=== PATIENT | female | born 1985 | race African-American/Black ===

== ENCOUNTER 2019-07-18 09:20 | Emergency (ER) | payer OTHER ==
[2019-07-18 09:31] VITALS: BP 124/74; PULSE 60; TEMP 97.6; BMI 21.2
[2019-07-18] MEDS ORDERED: LIDOCAINE 5% TOPICAL PATCH TP ONE (10:22)
[2019-07-18] MEDS ORDERED: ACETAMINOPHEN 325 MG TABLET (FP) PO ONE (10:22)
--- NOTE | 2019-07-18 10:27 | PDOC ---
History of Present Illness - General Chief Complaint: Pain Stated Complaint: FALL/STOMACH/ LWR BACK PAIN Time Seen by Provider: 07/18/19 09:54 History Source: Patient Exam Limitations: No Limitations - History of Present Illness Initial Comments: 07/18/19 10:26 33 y/o F with PMH of type 1 DM and HTN presents to the ED for back pain s/p fall 4 days ago. Pt explains that she was going down the stairs when she slipped and fell on her buttocks. Since then she has been experiencing sharp, pulsating 10/10 pain in her lumbar region and her left buttocks that radiates to her lower abdomen. The pain is relieved by ice pack and exacerbated by ambulation and back extension. She denies any FND, bowel/urinary incontinence, perianal numbness, F/C/N/V. She also complains of a possible yeast infection as she has been noticing increased white clumpy vaginal discharge similar to her prior yeast infections associated with a bad odor. She denies any vaginal pain or urinary symptoms, prior STDs. tested negative 2 yrs ago and not actively interested in testing if it will keep her here longer. Pt did not take her insulin this morning nor check her glucose yet. PSH: none Social : no smoking, EtOH, or illicit drug use PE: Gen: mild distress MSK: decreased back ROM on extension due to pain. motor and sensation intact in all extremities. mild point tenderness in parapsinal left lumbar and left buttocks neg straight leg raise test HEENT: PERRLA, moist membrane, conjunctiva and sclera clear CHEST: vesicular breath sound b/l no wheezing, rales or ronchi HEART: RRR no MRG Abdomen: +BS, mildly tender in the lower abdomen extremities: no edema pelvic exam : white odorless discharge, with pain and discomfort during speculum and pelvic exam. no erythema or strawberry cervix noted Assessment : based on HPI and PE DDX include: muscle sprain vs least likely lumbar back fracture (in the abscence of FND. pt is ambulating w/o issue.) 07/18/19 10:52 Plan: ice pack, tylenol PO 650mg, urine and urine analysis in the setting of increased vaginal discharge, left hip and pelvis Xray at pt request to r/o fractures. POC glucose as pt has nt had her blood glucose measured today and she hasnt taken her insulin. will also give fluconazole 150 once yeast infection more likely after pelvic exam. and will discharge home with one more dose as pt is uncontrolled DM will also send for Gono/Chlamydia with outpatient f/u if results abnormal 07/18/19 10:57 UA and urine negative 07/18/19 11:06 Left hip and pelvic Xray negative for pathology/fracture 07/18/19 11:12 POC glucose 427. pt will take own insulin lispro 07/18/19 11:28 pt is stable and diagnosis is most likely muscle sprain s/p fall . also likely yeast infection. Pt will be D/C home with instructions. informed pt to return if symptoms dont improve to return to ED Past History - Past Medical History Allergies/Adverse Reactions: Allergies Allergy/AdvReac Type Severity Reaction Status Date / Time No Known Allergies Allergy Unverified 07/18/19 09:31 Home Medications: Ambulatory Orders Insulin Lispro [Admelog Solostar] 0 unit SQ ASDIR 07/18/19 Lisinopril [Zestril] 20 mg PO DAILY 07/18/19 RX: Fluconazole 150 mg PO ONCE #1 tablet 07/18/19 COPD: No Diabetes: Yes HTN: Yes - Psycho Social/Smoking Cessation Hx Smoking History: Never smoked Information on smoking cessation initiated: No Hx Alcohol Use: No Drug/Substance Use Hx: No *Physical Exam - Vital Signs Last Vital Signs Temp Pulse Resp BP Pulse Ox 97.6 F 60 18 124/74 100 07/18/19 09:27 07/18/19 09:27 07/18/19 09:27 07/18/19 09:27 07/18/19 09:27 Discharge - Discharge Information Problems reviewed: Yes Clinical Impression/Diagnosis: Low back pain, Vulvovaginal candidiasis, IDDM (insulin dependent diabetes mellitus) Condition: Stable Disposition: HOME - Admission No - Additional Discharge Information Prescriptions: RX: Fluconazole 150 mg PO ONCE #1 tablet - Follow up/Referral Referrals: Peter Cannon [Primary Care Provider] - - Patient Discharge Instructions Patient Printed Discharge Instructions: DI for Prescription Opioid Use Additional Instructions: You were seen in the ER for low back pain and vaginal discharge. We did an exam , laboratory work on your blood and urine, and an x-ray, and we did not find any signs of an emergency. Your pain improved with the medications we gave you here in the ER. We gave you a dose of fluconazole for your yeast infection and sent a second pill to your pharmacy. Please take this second pill 72 hours from the first dose, which will be on 07/21 at about noon. After our assessment, we believe you are not having a medical emergency and you are safe to go home. Please take [id number]-[id number] pain relievers like naproxen (aleve) or ibuprofen ( motrin) or tylenol. Follow up with your primary care provider(s) in the next 1- 3 days. Call their clinic [facility], tell them you were seen in the ER, and tell them you need an appointment. Please come back to the ER at any time, 24 hours a day, for any new or worsening symptoms, like worsening pelvic pain, discharge , high fever, or other symptoms. If you are having severe or life threatening symptoms, or symptoms that make it unsafe to drive or have someone drive you, please call 911. - Post Discharge Activity Work/Back to School Note: Back to Work
[2019-07-18] MEDS ORDERED: ACETAMINOPHEN 325 MG TABLET (FP) ONE (10:29)
[2019-07-18 11:00] LABS: PH,URINE 5.5 (5.0-8.0); URINE APPEARANCE CLEAR; URINE BILIRUBIN NEGATIVE (NEGATIVE); URINE COLOR YELLOW; URINE GLUCOSE (UA) 3+ (NEGATIVE); URINE KETONE 1+ (NEGATIVE); URINE LEUK ESTERASE NEGATIVE (NEGATIVE); URINE NITRITE NEGATIVE (NEGATIVE); URINE PROTEIN NEGATIVE (NEGATIVE); URINE UROBILINOGEN 0.2 mg/dL (0.2-1.0)
[2019-07-18] MEDS ORDERED: FLUCONAZOLE 150 MG TABLET PO ONE (11:26)
--- NOTE | 2019-07-18 11:41 | PDOC ---
*Physical Exam - Vital Signs Last Vital Signs Temp Pulse Resp BP Pulse Ox 97.6 F 60 18 124/74 100 07/18/19 09:27 07/18/19 09:27 07/18/19 09:27 07/18/19 09:27 07/18/19 09:27 - Physical Exam I have assisted Dr. Horn in providing care to this patient. Patient had presented with low back pain radiating to LLQ. XR negative for acute fracture or dislocation. Pelvic exam with moderate cottage cheesy discharge. Will tx with fluconazole here and repeat dose sent to pharmacy. Return precautions discussed. ED Treatment Course - ADDITIONAL ORDERS Additional order review: Laboratory Results 07/18/19 07/18/19 07/18/19 11:09 10:30 10:30 POC Glucometer 427 Urine Color Yellow Urine Appearance Clear Urine pH 5.5 Ur Specific [place] 1.026 Urine Protein Negative Urine Glucose (UA) 3+ H Urine Ketones 1+ H Urine Blood Negative Urine Nitrite Negative Urine Bilirubin Negative Urine Urobilinogen 0.2 Ur Leukocyte Esterase Negative Urine HCG, Qual Negative 07/18/19 11:09 POC Glucometer 427 - Medications Given in the ED: ED Medications Discontinued Medications Generic Name Dose Route Start Last Admin Trade Name Faustino PRN Reason Stop Dose Admin Acetaminophen 650 mg 07/18/19 10:22 07/18/19 10:30 Tylenol - PO 07/18/19 10:23 650 mg ONCE ONE Administration Discharge - Discharge Information Problems reviewed: Yes Clinical Impression/Diagnosis: Vulvovaginal candidiasis, IDDM (insulin dependent diabetes mellitus) Low back pain Qualifiers: Chronicity: acute Back pain laterality: unspecified Sciatica presence: unspecified whether sciatica present Qualified Code(s): M54.5 - Low back pain Condition: Stable Disposition: HOME - Admission No - Additional Discharge Information Prescriptions: Fluconazole 150 mg PO ONCE #1 tablet - Follow up/Referral Referrals: Peter Cannon [Primary Care Provider] - - Patient Discharge Instructions Patient Printed Discharge Instructions: DI for Prescription Opioid Use Additional Instructions: You were seen in the ER for low back pain and vaginal discharge. We did an exam , laboratory work on your blood and urine, and an x-ray, and we did not find any signs of an emergency. Your pain improved with the medications we gave you here in the ER. We gave you a dose of fluconazole for your yeast infection and sent a second pill to your pharmacy. Please take this second pill 72 hours from the first dose, which will be on 07/21 at about noon. After our assessment, we believe you are not having a medical emergency and you are safe to go home. Please take [id number]-patcuoh pain relievers like naproxen (aleve) or ibuprofen ( motrin) or tylenol. Follow up with your primary care provider(s) in the next 1- 3 days. Call their clinic [facility], tell them you were seen in the ER, and tell them you need an appointment. Please come back to the ER at any time, 24 hours a day, for any new or worsening symptoms, like worsening pelvic pain, discharge , high fever, or other symptoms. If you are having severe or life threatening symptoms, or symptoms that make it unsafe to drive or have someone drive you, please call 911. - Post Discharge Activity Work/Back to School Note: Back to Work
--- NOTE | 2019-07-18 11:56 | PDOC ---
Documentation entered by Vicenta Vasquez SCRIBE, acting as scribe for Poncho Rand MD. Poncho Rand MD: This documentation has been prepared by the Christina higginbotham Torie, SCRIBE, under my direction and personally reviewed by me in its entirety. I confirm that the documentation accurately reflects all work, treatment, procedures, and medical decision making performed by me. Attending Attestation - Resident Resident Name: Kalee Horn - ED Attending Attestation I have performed the following: I have examined & evaluated the patient, The case was reviewed & discussed with the resident, I agree w/resident's findings & plan, Exceptions are as noted - HPI HPI: Patient is a 33 year old female with a significant medical history of type 1 DM and HTN who presents to the ED with lower back pain that began on Wednesday (07/15) after falling down the stairs. She states that she fell on her buttocks and denies any head strike or loss of consciousness. She states pain has been persistent since and reports taking advil which provided no relief. Pain is relieved mildy by use of ice packs. Patient denies weakness and numbness. - Physicial Exam PE: 07/18/19 10:57 Vitals: Triage Vital signs reviewed General Appearance: no acute distress, well nourished well developed, Head: Atraumatic, normocephalic Neck: Supple;No Nuchal rigidity Extremities:+Left buttocks tenderness to palpitation. Full range of motion to all extremities, no cyanosis, clubbing, or edema Neuro: Strength intact to all extremities, Sensation intact to all extremities - Medical Decision Making 07/18/19 11:35 33 years old with yeast infection also complaining of buttock pain status post fall x-rays negative for acute fracture will treat with fluconazole Findings, need for follow-up and strict return instruction discussed with patient. Discharge - Discharge Information Problems reviewed: Yes Clinical Impression/Diagnosis: Vulvovaginal candidiasis, IDDM (insulin dependent diabetes mellitus) Low back pain Qualifiers: Chronicity: acute Back pain laterality: unspecified Sciatica presence: unspecified whether sciatica present Qualified Code(s): M54.5 - Low back pain Condition: Stable Disposition: HOME - Admission No - Additional Discharge Information Prescriptions: Fluconazole 150 mg PO ONCE #1 tablet - Follow up/Referral Referrals: Peter Cannon [Primary Care Provider] - - Patient Discharge Instructions Patient Printed Discharge Instructions: DI for Prescription Opioid Use Additional Instructions: You were seen in the ER for low back pain and vaginal discharge. We did an exam , laboratory work on your blood and urine, and an x-ray, and we did not find any signs of an emergency. Your pain improved with the medications we gave you here in the ER. We gave you a dose of fluconazole for your yeast infection and sent a second pill to your pharmacy. Please take this second pill 72 hours from the first dose, which will be on 07/21 at about noon. After our assessment, we believe you are not having a medical emergency and you are safe to go home. Please take [id number]-[id number] pain relievers like naproxen (aleve) or ibuprofen ( motrin) or tylenol. Follow up with your primary care provider(s) in the next 1- 3 days. Call their clinic [facility], tell them you were seen in the ER, and tell them you need an appointment. Please come back to the ER at any time, 24 hours a day, for any new or worsening symptoms, like worsening pelvic pain, discharge , high fever, or other symptoms. If you are having severe or life threatening symptoms, or symptoms that make it unsafe to drive or have someone drive you, please call 911. - Post Discharge Activity Work/Back to School Note: Back to Work
[2019-07-18] MEDS ORDERED: LIDOCAINE PATCH REMOVAL MC SCH (22:00)
== END 2019-07-18 12:15 | disposition home or self-care (01) ==
LOC: JER 09:20
DX: W10.8XXA Fall (on) (from) other stairs and steps, initial encounter (principal); M54.5 Low back pain; Y93.89 Activity, other specified; Y92.018 Other place in single-family (private) house as the place of occurrence of the external cause; Y99.8 Other external cause status; B37.3 Candidiasis of vulva and vagina; E10.9 Type 1 diabetes mellitus without complications; Z79.4 Long term (current) use of insulin; I10 Essential (primary) hypertension
CPT/HCPCS: 73523-TC-FY; 81003; 82962; 84703; 99284-25

== ENCOUNTER 2021-04-19 12:00 | Emergency (ER) | payer OTHER ==
[2021-04-19 12:12] VITALS: BP 132/78; PULSE 80; TEMP 98.5; BMI 23.5
[2021-04-19] MEDS ORDERED: ACETAMINOPHEN 1000 MG/100 ML VIAL IVPB ONE (13:01)
[2021-04-19] MEDS ORDERED: SODIUM CHLORIDE 0.9% 500 ML INFUS.BAG IV ONE (13:01)
[2021-04-19 13:13] LABS: BASO % 0.2 % (0-2.0); EOS % 0.2 % (0-4.5); HEMATOCRIT 36.8 % (32.4-45.2); HEMOGLOBIN 12.2 GM/dL (10.7-15.3); LYMPH % 31.5 % (8-40); MCH 33.2 pg (25.7-33.7); MCHC 33.3 g/dl (32.0-36.0); MEAN CELL VOLUME 99.7 fl (80-96); MEAN PLT VOLUME 8.5 fl (7.5-11.1); MONO % 6.5 % (3.8-10.2); NEUT % 61.6 % (42.8-82.8); PLATELET COUNT 297 10^3/uL (134-434); RBC 3.69 M/mm3 (3.60-5.2); RDW 12.8 % (11.6-15.6); WHITE BLOOD COUNT 6.6 K/mm3 (4.0-10.0)
[2021-04-19] MEDS ORDERED: ACETAMINOPHEN INJECTION 100 ML IVPB ONE (13:14)
[2021-04-19 13:33] LABS: ALBUMIN 3.8 g/dl (3.4-5.0); CALCIUM 9.5 mg/dL (8.5-10.1); CO2 30 mmol/L (21-32)
[2021-04-19 13:34] LABS: BLOOD UREA NITROGEN 15.1 mg/dL (7-18); GLUCOSE,RANDOM 141 mg/dL (74-106); MAGNESIUM 1.9 mg/dL (1.8-2.4)
[2021-04-19 13:36] LABS: SGPT/ALT 15 U/L (13-61)
[2021-04-19 13:37] LABS: CREATININE 0.9 mg/dL (0.55-1.3); SGOT/AST 11 U/L (15-37)
[2021-04-19 13:38] LABS: BILIRUBIN,TOTAL 0.3 mg/dL (0.2-1); TOT PROT 7.8 g/dl (6.4-8.2)
[2021-04-19 13:39] LABS: ALK PHOS 102 U/L (45-117)
[2021-04-19 13:53] LABS: ANION GAP 5 MMOL/L (8-16); CHLORIDE 101 mmol/L (98-107); SODIUM 136 mmol/L (136-145)
== END 2021-04-19 15:11 | disposition home or self-care (01) ==
LOC: JER 12:00
PROC: 3E0333Z Introduction of Anti-inflammatory into Peripheral Vein, Percutaneous Approach (ICD-10-PCS; principal; 2021-04-19)
DX: R07.9 Chest pain, unspecified (principal); J06.9 Acute upper respiratory infection, unspecified
CPT/HCPCS: 36415; 71046-TC-FY; 80053; 83735; 84484; 84703; 85025; 87804; 87807; 93005; 93010; 99285-25; C9803; J0131; U0003; U0005

== ENCOUNTER 2023-05-07 19:20 | Emergency (ER) | payer OTHER ==
[2023-05-07 19:28] VITALS: RESP 18; TEMP 98.2; BMI 23.5
[2023-05-07] MEDS ORDERED: TETRACAINE 0.5% OPHTH SOLN 2 ML BOTTLE OU ONE (20:31)
[2023-05-07] MEDS ORDERED: ACETAMINOPHEN 500 MG TABLET (FP) PO ONE (20:31)
[2023-05-07] MEDS ORDERED: TETRACAINE 0.5% OPHTH SOLN 2 ML BOTTLE ONE (20:37)
[2023-05-07] MEDS ORDERED: ACETAMINOPHEN 500 MG TABLET (FP) ONE (20:43)
[2023-05-07] MEDS ORDERED: KETOROLAC TROMETHAMINE 15 MG/ML VIAL IVPUSH ONE (20:56)
[2023-05-07] MEDS ORDERED: SODIUM CHLORIDE 1,000 ML IV STA (20:57)
[2023-05-07] MEDS ORDERED: METOCLOPRAMIDE HCL INJECTION 10 MG/2 ML VIAL IVPUSH ONE (21:00)
[2023-05-07] MEDS ORDERED: METOCLOPRAMIDE HCL INJECTION 10 MG/2 ML VIAL ONE (21:05)
[2023-05-07] MEDS ORDERED: KETOROLAC TROMETHAMINE 15 MG/ML VIAL ONE (21:06)
[2023-05-07 21:34] LABS: BASO % 0.6 % (0-2.0); EOS % 1.3 % (0-4.5); HEMATOCRIT 32.7 % (32.4-45.2); HEMOGLOBIN 10.8 GM/dL (10.7-15.3); LYMPH % 34.2 % (8-40); MCH 33.7 pg (25.7-33.7); MCHC 32.9 g/dl (32.0-36.0); MEAN CELL VOLUME 102.4 fl (80-96); MEAN PLT VOLUME 8.4 fl (7.5-11.1); MONO % 6.9 % (3.8-10.2); PLATELET COUNT 236 10^3/uL (134-434); RDW 13.4 % (11.6-15.6); WHITE BLOOD COUNT 7.2 K/mm3 (4.0-10.0)
[2023-05-07] MEDS ORDERED: PROCHLORPERAZINE MALEATE 5 MG TABLET PO ONE (21:47)
[2023-05-07] MEDS ORDERED: PROCHLORPERAZINE INJECTION 10 MG/2 ML VIAL IVPB ONE (21:48)
[2023-05-07 21:49] LABS: POTASSIUM 4.4 mmol/L (3.5-5.1)
[2023-05-07 21:51] LABS: ALBUMIN 3.3 g/dl (3.4-5.0); BLOOD UREA NITROGEN 12.7 mg/dL (7-18); CALCIUM 8.5 mg/dL (8.5-10.1)
[2023-05-07 21:54] LABS: CREATININE 0.7 mg/dL (0.55-1.3)
[2023-05-07 21:56] LABS: BILIRUBIN,TOTAL 0.5 mg/dL (0.2-1); TOT PROT 6.6 g/dl (6.4-8.2)
[2023-05-07] MEDS ORDERED: PROCHLORPERAZINE INJECTION 10 MG/2 ML VIAL ONE (22:18)
[2023-05-08 00:26] VITALS: PULSE 68
[2023-05-08 03:41] VITALS: BP 148/78
== END 2023-05-08 03:41 | disposition short-term general hospital (02) ==
LOC: JER 19:20
PROC: 3E033GC Introduction of Other Therapeutic Substance into Peripheral Vein, Percutaneous Approach (ICD-10-PCS; principal; 2023-05-07)
PROC: 3E0333Z Introduction of Anti-inflammatory into Peripheral Vein, Percutaneous Approach (ICD-10-PCS; 2023-05-07)
PROC: 3E033GC Introduction of Other Therapeutic Substance into Peripheral Vein, Percutaneous Approach (ICD-10-PCS; 2023-05-07)
PROC: 3E033GC Introduction of Other Therapeutic Substance into Peripheral Vein, Percutaneous Approach (ICD-10-PCS; 2023-05-07)
PROC: 3E0337Z Introduction of Electrolytic and Water Balance Substance into Peripheral Vein, Percutaneous Approach (ICD-10-PCS; 2023-05-07)
DX: H57.12 Ocular pain, left eye (principal); R51.9 Headache, unspecified; H04.219 Epiphora due to excess lacrimation, unspecified lacrimal gland; H53.8 Other visual disturbances; Z20.822 Contact with and (suspected) exposure to COVID-19
CPT/HCPCS: 0241U-QW; 36415; 80053; 85025; 99285-25

== ENCOUNTER 2023-09-02 12:22 | Emergency (ER) | payer OTHER ==
[2023-09-02 12:31] VITALS: BP 124/85; PULSE 85; RESP 18; TEMP 97.8; BMI 21.1
[2023-09-02 14:06] LABS: VENOUS BASE EXCESS 0.1 mmol/L (-2-2); VENOUS O2 SATURATION 71.9 % (70-80); VENOUS PCO2 48.1 mmHg (38-52); VENOUS PH 7.354 (7.310-7.410)
[2023-09-02 14:16] LABS: BASO % 0.7 % (0-2.0); EOS % 1.1 % (0-4.5); HEMATOCRIT 38.1 % (32.4-45.2); HEMOGLOBIN 12.5 GM/dL (10.7-15.3); MCH 32.9 pg (25.7-33.7); MCHC 32.8 g/dl (32.0-36.0); MEAN CELL VOLUME 100.6 fl (80-96); MEAN PLT VOLUME 8.6 fl (7.5-11.1); MONO % 6.2 % (3.8-10.2); PLATELET COUNT 345 10^3/uL (134-434); RBC 3.78 M/mm3 (3.60-5.2); RDW 13.2 % (11.6-15.6); WHITE BLOOD COUNT 11.5 K/mm3 (4.0-10.0)
[2023-09-02 14:17] LABS: URINE APPEARANCE CLEAR; URINE BILIRUBIN NEGATIVE (NEGATIVE); URINE COLOR YELLOW; URINE GLUCOSE (UA) 3+ (NEGATIVE); URINE KETONE TRACE (NEGATIVE); URINE LEUK ESTERASE NEGATIVE (NEGATIVE); URINE NITRITE NEGATIVE (NEGATIVE); URINE PROTEIN NEGATIVE (NEGATIVE); URINE UROBILINOGEN 0.2 mg/dL (0.2-1.0)
[2023-09-02 14:21] LABS: POTASSIUM 4.2 mmol/L (3.5-5.1)
[2023-09-02 14:22] LABS: CALCIUM 10.2 mg/dL (8.5-10.1)
[2023-09-02 14:23] LABS: BLOOD UREA NITROGEN 19.9 mg/dL (7-18)
[2023-09-02 14:26] LABS: CREATININE 0.7 mg/dL (0.55-1.3)
== END 2023-09-02 15:37 | disposition home or self-care (01) ==
LOC: JER 12:22
DX: E11.65 Type 2 diabetes mellitus with hyperglycemia (principal)
CPT/HCPCS: 36415; 80048; 81003; 82803; 82962; 85025; 87086; 99283-25

== ENCOUNTER 2024-09-06 08:25 | Emergency (ER) | payer OTHER ==
[2024-09-06 08:43] VITALS: BP 130/79; PULSE 79; RESP 18; TEMP 97.9; BMI 23.5
[2024-09-06] MEDS ORDERED: BACITRACIN ZINC 15 GM TUBE TOPICAL OINTMENT ONE (09:01)
[2024-09-06] MEDS ORDERED: DIPHTH,PERTUSS(ACELL),TET 0.5 ML DISP.SYRIN IM ONE (09:02)
[2024-09-06] MEDS ORDERED: ACETAMINOPHEN 500 MG TABLET (FP) ONE (09:02)
[2024-09-06] MEDS: BACITRACIN ZINC 15 GM TUBE TOPICAL OINTMENT TP ONE (09:07)
[2024-09-06] MEDS: DIPHTH,PERTUSS(ACELL),TET 0.5 ML DISP.SYRIN IM ONE (09:07)
[2024-09-06] MEDS: ACETAMINOPHEN 500 MG TABLET (FP) PO ONE (09:08)
== END 2024-09-06 10:17 | disposition home or self-care (01) ==
LOC: JER 08:25 → JERFT 08:25
PROC: 3E0234Z Introduction of Serum, Toxoid and Vaccine into Muscle, Percutaneous Approach (ICD-10-PCS; principal; 2024-09-06)
DX: S80.212A Abrasion, left knee, initial encounter (principal); M25.472 Effusion, left ankle; Z23 Encounter for immunization; W01.0XXA Fall on same level from slipping, tripping and stumbling without subsequent striking against object, initial encounter; Y92.26 Movie house or cinema as the place of occurrence of the external cause
CPT/HCPCS: 90471; 90715; 99284-25